=== PATIENT | male | born 1950 | race Caucasian/White ===

== ENCOUNTER → 2023-11-12 | Outpatient (CLI) | payer MEDICARE, BC ==
[~2023-11-12] MED LIST: AMLO5 PO; Aspir 8181 MG PO; NAPR500 PO
[2023-11-18 03:28] LABS: VARICELLA-ZOSTER VIRUS BY PCR Not Detected; VARICELLA-ZOSTER VIRUS SOURCE PENIS M6 SWAB
[2023-11-18 08:25] LABS: HSV 1 SUBTYPE BY PCR Not Detected; HSV 2 SUBTYPE BY PCR Not Detected; HSV SUBTYPE SOURCE PENIS M6 SWAB
== END ==
LOC: LAB SHORT 17:40 → LAB EV 17:40
PROVIDERS: Physician Assistant Medical
DX: L08.9 Local infection of the skin and subcutaneous tissue, unspecified (principal); L57.8 Other skin changes due to chronic exposure to nonionizing radiation; D22.62 Melanocytic nevi of left upper limb, including shoulder; L81.4 Other melanin hyperpigmentation; Z71.89 Other specified counseling; Z12.83 Encounter for screening for malignant neoplasm of skin
CPT/HCPCS: 87070; 87205; 87529; 87798

== ENCOUNTER → 2024-02-01 | Outpatient (CLI) | payer MEDICARE, BC ==
[2024-02-03 20:34] LABS: HSV 1 SUBTYPE BY PCR Not Detected; HSV 2 SUBTYPE BY PCR Detected; HSV SUBTYPE SOURCE left lower back
[2024-02-03 23:06] LABS: VARICELLA-ZOSTER VIRUS BY PCR Not Detected; VARICELLA-ZOSTER VIRUS SOURCE left lower back
== END | disposition home or self-care (01) ==
LOC: LAB SHORT 10:00 → LAB 10:00
PROVIDERS: Physician Assistant
DX: L08.9 Local infection of the skin and subcutaneous tissue, unspecified (principal)
CPT/HCPCS: 87529; 87798

== ENCOUNTER → 2025-04-25 | Outpatient (CLI) | payer MEDICARE, BC ==
[2025-04-25 14:52] LABS: Hematocrit 39.9 % (37.0-53.0); Hemoglobin 13.3 g/dL (13.5-17.5); Mean Corpuscular HGB Conc 33.3 g/dL (31.5-36.5); Mean Corpuscular Volume 91 fL (80-100); NRBC ABSOLUTE 0.00 K/mm3 (0.00-0.02); NRBC Auto 0.0 /100 WBC (0.0-0.2); Platelet Count 240 K/mm3 (150-400); RDW Coefficient Variation 13.8 % (11.7-14.2); RDW Standard Deviation 46.7 fL (35.1-46.3)
[2025-04-25 15:04] LABS: Alanine Aminotransfer (ALT/SGP 433.0 U/L (12-78); Albumin, Blood 3.7 g/dL (3.4-5.0); Albumin/Globulin Ratio 1.2 (0.8-1.8); Anion Gap 9.0 mmol/L (3-11); Aspartate Aminotrans (AST/SGOT 164.0 U/L (12-37); Bilirubin, Total 9.5 mg/dL (0.1-1.0); Blood Urea Nitrogen 15.0 mg/dL (8-24); CO2, Blood 27.0 mmol/L (21-32); Calcium, Blood 9.1 mg/dL (8.5-10.1); Chloride, Blood 100.0 mmol/L (98-108); Creatinine, Blood 0.76 mg/dL (0.60-1.20); Globulin, Blood 3.2 g/dL (2.2-4.0); Glucose, Blood 100.0 mg/dL (70-99); Potassium, Blood 3.8 mmol/L (3.5-5.5); Sodium, Blood 132.0 mmol/L (136-145); Total Protein, Blood 6.9 g/dL (6.4-8.2)
[2025-04-25 15:46] LABS: BASOPHILS ABSOLUTE MAN 0.00 K/mm3 (0.00-0.23); BASOPHILS PERCENT MAN 0 % (0-2); EOSINOPHILS ABSOLUTE MAN 0.12 K/mm3 (0.00-0.68); EOSINOPHILS PERCENT MAN 2 % (0-6); LYMPHOCYTES ABSOLUTE MAN 1.22 K/mm3 (0.84-5.20); LYMPHOCYTES PERCENT MAN 19 % (21-46); MONOCYTES ABSOLUTE MAN 0.58 K/mm3 (0.16-1.47); MONOCYTES PERCENT MAN 9 % (4-13); NEUTROPHILS ABSOLUTE MAN 4.51 K/mm3 (1.96-9.15); SEG NEUTROPHILS PERCENT MAN 70 % (41-73)
[2025-04-27 12:34] LABS: HEPATITIS A ANTIBODY, IGM Negative (Negative); HEPATITIS C AB CIA INTERP Negative (Negative); HEPATITIS C ANTIBODY CIA INDEX 0.02 IV
== END ==
LOC: LAB 13:00 → LAB SHORT 13:00
PROVIDERS: Nurse Practitioner
DX: R39.89 Other symptoms and signs involving the genitourinary system (principal); R17 Unspecified jaundice
CPT/HCPCS: 80053; 80074; 83690; 85007; 85027; 87086

== ENCOUNTER → 2025-06-29 | Outpatient (CLI) | payer MEDICARE, BC ==
[~2025-06-29] MED LIST changes: +CREON DR 24,001 EACH PO; +K-Dur20 MEQ PO; +OMEP20ER PO
[2025-06-29 14:16] LABS: BASOPHILS ABSOLUTE AUTO 0.01 K/mm3 (0.00-0.23); BASOPHILS PERCENT AUTO 0 % (0-2); EOSINOPHILS ABSOLUTE AUTO 0.03 K/mm3 (0.00-0.68); EOSINOPHILS PERCENT AUTO 0 % (0-6); Hematocrit 24.7 % (37.0-53.0); Hemoglobin 8.2 g/dL (13.5-17.5); IMMATURE GRAN ABSOLUTE AUTO 0.10 K/mm3 (0.00-0.10); IMMATURE GRAN PERCENT AUTO 1 % (0-1); LYMPHOCYTES ABSOLUTE AUTO 0.55 K/mm3 (0.84-5.20); LYMPHOCYTES PERCENT AUTO 4 % (21-46); MONOCYTES ABSOLUTE AUTO 0.53 K/mm3 (0.16-1.47); MONOCYTES PERCENT AUTO 4 % (4-13); Mean Corpuscular HGB Conc 33.2 g/dL (31.5-36.5); Mean Corpuscular Volume 95 fL (80-100); NEUTROPHILS ABSOLUTE AUTO 11.50 K/mm3 (1.96-9.15); NEUTROPHILS PERCENT AUTO 90 % (41-73); NRBC ABSOLUTE 0.00 K/mm3 (0.00-0.02); NRBC Auto 0.0 /100 WBC (0.0-0.2); Platelet Count 345 K/mm3 (150-400); RDW Coefficient Variation 15.7 % (11.7-14.2); RDW Standard Deviation 54.6 fL (35.1-46.3)
[2025-06-29 16:08] LABS: Alanine Aminotransfer (ALT/SGP 210.0 U/L (12-78); Albumin, Blood 1.9 g/dL (3.4-5.0); Albumin/Globulin Ratio 0.6 (0.8-1.8); Anion Gap 11.0 mmol/L (3-11); Aspartate Aminotrans (AST/SGOT 95.0 U/L (12-37); Bilirubin, Total 11.3 mg/dL (0.1-1.0); Blood Urea Nitrogen 40.0 mg/dL (8-24); CO2, Blood 24.0 mmol/L (21-32); Calcium, Blood 8.0 mg/dL (8.5-10.1); Chloride, Blood 96.0 mmol/L (98-108); Creatinine, Blood 1.4 mg/dL (0.60-1.20); Ferritin, Serum 1536.0 ng/mL (26-388); Globulin, Blood 3.4 g/dL (2.2-4.0); Glucose, Blood 565.0 mg/dL (70-99); Potassium, Blood 2.9 mmol/L (3.5-5.5); Sodium, Blood 128.0 mmol/L (136-145); Total Iron Binding Capacity 219.0 ug/dL (250-450); Total Protein, Blood 5.3 g/dL (6.4-8.2)
== END ==
LOC: LAB 13:55 → LAB SHORT 13:55
PROVIDERS: Internal Medicine Hematology & Oncology
DX: C25.9 Malignant neoplasm of pancreas, unspecified (principal)
CPT/HCPCS: 80053; 82728; 83540; 83550; 85025; 85651; 86301

== ENCOUNTER 2025-07-03 11:15 | Emergency (ER) | payer MEDICARE, BC ==
[~2025-07-03] VITALS: Ht 175.3 cm; Wt 65.8 kg
[~2025-07-03 11:15] MED LIST changes: -CREON DR 24,001 EACH PO; -K-Dur20 MEQ PO; -OMEP20ER PO
[2025-07-03 12:22] LABS: BASOPHILS ABSOLUTE AUTO 0.02 K/mm3 (0.00-0.23); BASOPHILS PERCENT AUTO 0 % (0-2); EOSINOPHILS ABSOLUTE AUTO 0.00 K/mm3 (0.00-0.68); EOSINOPHILS PERCENT AUTO 0 % (0-6); Hematocrit 18.4 % (37.0-53.0); Hemoglobin 6.0 g/dL (13.5-17.5); IMMATURE GRAN ABSOLUTE AUTO 0.13 K/mm3 (0.00-0.10); IMMATURE GRAN PERCENT AUTO 1 % (0-1); LYMPHOCYTES ABSOLUTE AUTO 0.64 K/mm3 (0.84-5.20); LYMPHOCYTES PERCENT AUTO 4 % (21-46); MONOCYTES ABSOLUTE AUTO 0.53 K/mm3 (0.16-1.47); MONOCYTES PERCENT AUTO 4 % (4-13); Mean Corpuscular HGB Conc 32.6 g/dL (31.5-36.5); Mean Corpuscular Volume 97 fL (80-100); NEUTROPHILS ABSOLUTE AUTO 13.28 K/mm3 (1.96-9.15); NEUTROPHILS PERCENT AUTO 91 % (41-73); NRBC ABSOLUTE 0.00 K/mm3 (0.00-0.02); NRBC Auto 0.0 /100 WBC (0.0-0.2); Platelet Count 373 K/mm3 (150-400); RDW Coefficient Variation 15.1 % (11.7-14.2); RDW Standard Deviation 53.1 fL (35.1-46.3)
[2025-07-03] MEDS ORDERED: CefTRIAXone Sodium 1,000 MG in NS 50 ML IV ONE (12:40)
[2025-07-03] MEDS ORDERED: Pantoprazole Sodium 40 MG Injection IV ONE (12:40)
[2025-07-03] MEDS ORDERED: Tranexamic Acid 100 ML IV ONE (12:50)
[2025-07-03 13:00] LABS: Prothrombin Time Results 10.9 Sec (9.7-11.5)
[2025-07-03 13:02] LABS: Alanine Aminotransfer (ALT/SGP 147.0 U/L (12-78); Albumin, Blood 1.5 g/dL (3.4-5.0); Albumin/Globulin Ratio 0.5 (0.8-1.8); Anion Gap 12.0 mmol/L (3-11); Aspartate Aminotrans (AST/SGOT 70.0 U/L (12-37); Bilirubin, Total 7.4 mg/dL (0.1-1.0); Blood Urea Nitrogen 41.0 mg/dL (8-24); CO2, Blood 21.0 mmol/L (21-32); Calcium, Blood 8.1 mg/dL (8.5-10.1); Chloride, Blood 102.0 mmol/L (98-108); Creatinine, Blood 1.45 mg/dL (0.60-1.20); Globulin, Blood 2.8 g/dL (2.2-4.0); Glucose, Blood 448.0 mg/dL (70-99); Potassium, Blood 3.6 mmol/L (3.5-5.5); Sodium, Blood 131.0 mmol/L (136-145); Total Protein, Blood 4.3 g/dL (6.4-8.2)
[2025-07-03] MEDS ORDERED: Ondansetron HCl 2 MG / ML 2ML Vial IV ONE (13:15)
[2025-07-03] MEDS ORDERED: NS 1,000 ML IV ONE (14:13)
[2025-07-03 14:15] VITALS: BP 105/46
[2025-07-03] MEDS ORDERED: CREON DR 24,001 EACH PO (14:46)
[2025-07-03] MEDS ORDERED: K-Dur20 MEQ PO (14:46)
[2025-07-03] MEDS ORDERED: OMEP20ER PO (14:47)
== END 2025-07-03 14:49 | disposition short-term general hospital (02) ==
LOC: ER 11:15
PROVIDERS: Emergency Medicine
DX: K92.0 Hematemesis (principal); D64.9 Anemia, unspecified; Z79.82 Long term (current) use of aspirin
CPT/HCPCS: 36430; 80053; 83690; 85025; 85610; 85730; 86850; 86900; 86901; 86923; 93005; 93010; 96365; 96375; 99285-25; J0696; J2354; J2405; J2470; J7030; P9016

== ENCOUNTER 2025-08-04 06:47 | Day surgery (SDC) | payer MEDICARE, BC ==
[2025-08-04] VITALS (10 sets, daily range): BP systolic 113–128; BP diastolic 64–71
[~2025-08-04] VITALS: Ht 175.3 cm; Wt 65.4 kg
[~2025-08-04 06:47] MED LIST changes: +CREON DR 24,001 EACH PO; +Calcium Carbon500 MG PO; +CeFAZolin Sodium 2,000 MG in NS 100 ML IV SCH; +K-Dur20 MEQ PO; +OMEP20ER PO; +OZEMPIC0.25 MG/02 SC
[2025-08-04] MEDS ORDERED: FentaNYL Citrate 50 MCG/ML 2 ML Injection ONE (07:30)
[2025-08-04] MEDS ORDERED: Bupivacaine 0.5% HCl 5 MG/ML 30MLVIAL ONE (07:30)
--- NOTE | 2025-08-04 07:46 | NUR ---
Ambulatory in Day Surgery W/CANE Pre-Op teaching done. Pt verbalizes understanding. History, Chart, Medications and Allergies reviewed before start of procedure.Patient confirms NPO status and agrees with scheduled surgery. Patient States Post-Procedure ride home has been arranged.
[2025-08-04] MEDS ORDERED: Ondansetron HCl 2 MG / ML 2ML Vial ONE (08:36)
[2025-08-04] MEDS ORDERED: Phenylephrine HCl 100 MCG/ML-NS 10MLSYR (1MG/10ML) ONE (08:36)
[2025-08-04] MEDS ORDERED: HYDROmorphone HCl/Pf 1MG SYR IV PRN ×2 (08:40→08:45)
[2025-08-04] MEDS ORDERED: Ondansetron HCl 2 MG / ML 2ML Vial IV PRN (08:40)
[2025-08-04] MEDS ORDERED: FentaNYL Citrate 50 MCG/ML 2 ML Injection IV PRN ×2 (08:45)
--- NOTE | 2025-08-04 09:49 | NUR ---
TO STEP POST MEDIPORT. CONFIRMED VIA CXR. RIGHT CHEST GAUZE/CLEAR DRESSING CDI. NECK STERI-STRIP CDI. DENIES PAIN, NAUSEA, SOB. VERBALIZED UNDERSTANDING OF DC INSTRUCTIONS. [place]ERICK PO WELL. DC'D IV INTACT. DC'D VIA WC TO PRIVATE CAR WITH [employer]. DECLINES PO PAIN MEDS.
== END 2025-08-04 09:40 | disposition home or self-care (01) ==
LOC: ORSCMMR 06:47 → ORD 08:00 → ORSCMMR 09:40
PROVIDERS: Surgery
PROC: B549ZZA Ultrasonography of Inferior Vena Cava, Guidance (ICD-10-PCS; principal; 2025-08-04 08:00)
PROC: 0JH63WZ Insertion of Totally Implantable Vascular Access Device into Chest Subcutaneous Tissue and Fascia, Percutaneous Approach (ICD-10-PCS; principal; 2025-08-04 08:00)
PROC: 06H033Z Insertion of Infusion Device into Inferior Vena Cava, Percutaneous Approach (ICD-10-PCS; principal; 2025-08-04 08:00)
DX: C25.0 Malignant neoplasm of head of pancreas (principal); C77.2 Secondary and unspecified malignant neoplasm of intra-abdominal lymph nodes; I10 Essential (primary) hypertension; E78.5 Hyperlipidemia, unspecified; K22.10 Ulcer of esophagus without bleeding; K26.9 Duodenal ulcer, unspecified as acute or chronic, without hemorrhage or perforation; Z79.899 Other long term (current) drug therapy; K21.9 Gastro-esophageal reflux disease without esophagitis
CPT/HCPCS: 77001; C1788; J0690; J1642; J2371; J2405; J2704; J3010; J7120

== ENCOUNTER 2025-08-16 01:49 | Day surgery (SDC) | payer MEDICARE, BC ==
[2025-08-16] VITALS (7 sets, daily range): BP systolic 129–152; BP diastolic 67–81
[~2025-08-16 01:49] MED LIST changes: -CeFAZolin Sodium 2,000 MG in NS 100 ML IV SCH
[2025-08-16] MEDS ORDERED: NS 250 ML IV SCH (07:10)
== END 2025-08-16 18:00 | disposition home or self-care (01) ==
LOC: ATC 01:49
DX: C25.0 Malignant neoplasm of head of pancreas (principal); C77.2 Secondary and unspecified malignant neoplasm of intra-abdominal lymph nodes; E80.6 Other disorders of bilirubin metabolism; K86.89 Other specified diseases of pancreas; E78.5 Hyperlipidemia, unspecified; M85.80 Other specified disorders of bone density and structure, unspecified site; G43.809 Other migraine, not intractable, without status migrainosus; Z79.899 Other long term (current) drug therapy; Z88.8 Allergy status to other drugs, medicaments and biological substances
CPT/HCPCS: 36430; 86850; 86900; 86901; 86923; 99211; J1642; J7050; P9016